=== PATIENT | male | born 1985 | race Caucasian/White ===

== ENCOUNTER 2017-03-05 19:23 | Emergency (ER) | payer OTHER ==
[~2017-03-05] VITALS: Ht 180.3 cm; Wt 99.3 kg
[2017-03-05] MEDS ORDERED: LISINOPRIL30 MG PO (19:34)
[2017-03-05] MEDS ORDERED: TOPROL XL25 MG PO (19:34)
[2017-03-05] MEDS ORDERED: ZOLOFT50 MG PO (19:35)
--- NOTE | 2017-03-05 22:26 | EKG ---
[facility] [address] [facility] [place] [address] Signed Sinus tachycardia Otherwise normal ECG No previous ECGs available Confirmed by DANICA DOWD MD ([id number] on 03/05/2017 10:26:25 PM Electronically Signed By: DANICA DOWD MD 03/05/17 2226 PATIENT NAME: GENIA FOX Electrocardiogram DATE OF : 85 PHYSICIAN: DANICA DOWD MD REPORT #: [id number] REPORT IS CONFIDENTIAL AND NOT TO BE RELEASED WITHOUT AUTHORIZATION
== END 2017-03-05 22:01 | disposition home or self-care (01) ==
LOC: ED 19:23
DX: F15.10 Other stimulant abuse, uncomplicated (principal); I10 Essential (primary) hypertension; E11.9 Type 2 diabetes mellitus without complications; Z79.899 Other long term (current) drug therapy; F17.200 Nicotine dependence, unspecified, uncomplicated; Z98.890 Other specified postprocedural states
CPT/HCPCS: 71010; 80053; 84484; 85025; 93005; 93010; 96360; 99284; J7030